=== PATIENT | male | born 1970 | race African-American/Black ===

== ENCOUNTER 2021-02-05 10:02 | Inpatient (IN) | payer OTHER ==
[~2021-02-05] VITALS: Ht 167.6 cm; Wt 72.9 kg
[2021-02-05] MEDS ORDERED: SODIUM CHLORIDE 0.9% 1,000 ML IV ONE ×2 (10:15→13:00)
[2021-02-05] MEDS ORDERED: FAMOTIDINE (10MG/ML) 2ML VL IV ONE (10:15)
[2021-02-05] MEDS ORDERED: IOHEXOL 300 MG/ML 100ML BOTTLE IJ ONE (10:23)
[2021-02-05 10:45] LABS: Basophils # (auto) 0.1 10 ^3/uL (0-0.2); Basophils % (auto) 0.6 % (0.0-2.0); Eosinophils # (auto) 0 10 ^3/uL (0-0.8); Eosinophils % (auto) 0.4 % (0.0-7.0); Hematocrit 32.2 % (41.0-53.0); Hemoglobin 10.7 g/dL (13.5-17.5); Lymphocytes # (auto) 2.4 10 ^3/uL (0.4-5.4); Lymphocytes % (auto) 23.7 % (10.0-50.0); Mean Corpuscular Hemoglobin 30.9 pg (28.0-32.0); Mean Corpuscular Hgb Conc. 33.2 g/dL (32.0-36.0); Mean Corpuscular Volume 93.1 fL (80.0-100.0); Monocytes # (auto) 0.7 10 ^3/uL (0-1.3); Monocytes % (auto) 6.3 % (0.0-12.0); Neutrophils # (auto) 7.1 10 ^3/uL (1.6-8.6); Red Blood Cells 3.46 10^6/uL (4.5-5.90); Red Cell Distribution Width 13.3 % (11.8-14.3); White Blood Cell 10.3 10^3/uL (4.4-10.8)
[2021-02-05 11:11] LABS: Alanine Aminotransferase 17 U/L (16-61); Albumin 3.6 g/dL (3.4-5.0); Anion Gap 6 (5-15); Blood Urea Nitrogen 43 mg/dL (7-18); Calcium 8.9 mg/dL (8.5-10.1); Carbon Dioxide 26 mmol/L (21-32); Chloride 106 mmol/L (98-107); Glucose 103 mg/dL (74-106); INR 1.03 (0.9-1.15); Partial Thromboplastin Time 24.5 sec (23.0-31.2); Potassium 3.7 mmol/L (3.5-5.1); Sodium 138 mmol/L (136-145)
[2021-02-05 11:16] LABS: Alkaline Phosphatase 64 U/L (45-117); Aspartate Aminotransferase 19 U/L (15-37); BUN/Creatinine Ratio 48.9; Bilirubin, Total 0.5 mg/dL (0.2-1.0); GFR African American 117 mL/min; GFR Non-African American 97 mL/min; Total Protein 7.9 g/dL (6.4-8.2)
[2021-02-05] MEDS ORDERED: NITROGLYCERIN 0.4 MG SL TAB SL PRN (13:00)
[2021-02-05] MEDS ORDERED: MORPHINE SULFATE INJECTION 2 MG/ML SYRG IV PRN ×2 (13:00)
[2021-02-05] MEDS ORDERED: ONDANSETRON HCL 4 MG/2 ML VIAL IV PRN (13:00)
[2021-02-05] MEDS: PANTOPRAZOLE 40mg/50ML NS AE 50 ML IV SCH ×3 (14:09→22:00)
[2021-02-05] MEDS: SUCRALFATE 1 GM/10 ML ORAL SUSP PO SCH ×2 (18:39→21:58)
[2021-02-05 19:19] LABS: Urine Bacteria NONE SEEN /hpf (None Seen); Urine Blood Negative /uL (Negative); Urine WBC 3 /hpf (0 - 3)
[2021-02-05 19:25] LABS: Urine Specific Gravity > 1.050 (1.001-1.035)
[2021-02-06] MEDS: PANTOPRAZOLE 40mg/50ML NS AE 50 ML IV SCH ×2 (02:20→10:39)
[2021-02-06 03:47] VITALS: BP 102/69
[2021-02-06 04:52] VITALS: BP 101/55
[2021-02-06] MEDS: SUCRALFATE 1 GM/10 ML ORAL SUSP PO SCH ×4 (06:29→22:20)
[2021-02-06 07:49] LABS: Basophils # (auto) 0.1 10 ^3/uL (0-0.2); Basophils % (auto) 1.1 % (0.0-2.0); Eosinophils # (auto) 0.1 10 ^3/uL (0-0.8); Eosinophils % (auto) 1.1 % (0.0-7.0); Hematocrit 26.2 % (41.0-53.0); Hemoglobin 8.9 g/dL (13.5-17.5); Lymphocytes # (auto) 1.8 10 ^3/uL (0.4-5.4); Lymphocytes % (auto) 34.7 % (10.0-50.0); Mean Corpuscular Hemoglobin 31.5 pg (28.0-32.0); Mean Corpuscular Hgb Conc. 33.7 g/dL (32.0-36.0); Mean Corpuscular Volume 93.4 fL (80.0-100.0); Monocytes # (auto) 0.4 10 ^3/uL (0-1.3); Monocytes % (auto) 8.2 % (0.0-12.0); Neutrophils # (auto) 2.8 10 ^3/uL (1.6-8.6); Neutrophils % (auto) 54.9 % (37.0-80.0); Nucleated Red Blood Cells % 0.1 %; Red Blood Cells 2.81 10^6/uL (4.5-5.90); Red Cell Distribution Width 13.3 % (11.8-14.3); White Blood Cell 5.2 10^3/uL (4.4-10.8)
[2021-02-06 07:57] LABS: Albumin 3.1 g/dL (3.4-5.0); Calcium 8.2 mg/dL (8.5-10.1); Potassium 3.6 mmol/L (3.5-5.1)
[2021-02-06 08:00] VITALS: BP 100/70
[2021-02-06 08:00] LABS: BUN/Creatinine Ratio 28.6; Bilirubin, Total 0.4 mg/dL (0.2-1.0); Total Protein 6.6 g/dL (6.4-8.2)
[2021-02-06 12:00] VITALS: BP 110/81
[2021-02-06] MEDS ORDERED: LIDOCAINE VISCOUS 2% 15ML UD ONE (12:19)
[2021-02-06] MEDS: fentaNYL CITRATE 100 MCG/2 ML VL ONE ×2 (12:35→12:38)
[2021-02-06] MEDS: MIDAZOLAM HCL 5 MG/ML-1ML VIAL ONE ×3 (12:35→12:42)
[2021-02-06] MEDS: diphenhdrAMINE HCL 50 MG/1 ML VL ONE ×2 (12:35→12:38)
[2021-02-06 14:14] LABS: Hematocrit 25.5 % (41.0-53.0); Hemoglobin 8.5 g/dL (13.5-17.5)
[2021-02-06 16:00] VITALS: BP 109/65
[2021-02-06 22:13] LABS: Hematocrit 22.6 % (41.0-53.0); Hemoglobin 7.8 g/dL (13.5-17.5)
[2021-02-06] MEDS: PANTOPRAZOLE 40 MG TAB PO SCH (22:20)
[2021-02-07 05:00] VITALS: BP 112/69
[2021-02-07 05:41] LABS: Basophils # (auto) 0 10 ^3/uL (0-0.2); Eosinophils # (auto) 0.2 10 ^3/uL (0-0.8); Monocytes # (auto) 0.4 10 ^3/uL (0-1.3); Neutrophils # (auto) 2.9 10 ^3/uL (1.6-8.6)
[2021-02-07 05:44] LABS: Basophils % (auto) 0.9 % (0.0-2.0); Eosinophils % (auto) 3.1 % (0.0-7.0); Hematocrit 23.6 % (41.0-53.0); Lymphocytes # (auto) 1.8 10 ^3/uL (0.4-5.4); Lymphocytes % (auto) 33.6 % (10.0-50.0); Mean Corpuscular Hemoglobin 31.9 pg (28.0-32.0); Mean Corpuscular Hgb Conc. 33.9 g/dL (32.0-36.0); Mean Corpuscular Volume 94.2 fL (80.0-100.0); Monocytes % (auto) 7.2 % (0.0-12.0); Neutrophils % (auto) 55.2 % (37.0-80.0); Nucleated Red Blood Cells % 0.1 %; White Blood Cell 5.3 10^3/uL (4.4-10.8)
[2021-02-07] MEDS: SUCRALFATE 1 GM/10 ML ORAL SUSP PO SCH (05:57)
[2021-02-07 09:30] VITALS: BP 114/63
[2021-02-07] MEDS: PANTOPRAZOLE 40 MG TAB PO SCH (09:49)
[2021-02-07] MEDS ORDERED: PANT40T PO (10:28)
[2021-02-07] MEDS ORDERED: SUCR1TAB22 OR (10:29)
[2021-02-07] MEDS ORDERED: FERR-7 PO (10:30)
[2021-02-07] MEDS ORDERED: SODIUM FERR GLUC 62.5MG/5ML 125 MG in SODIUM CHL 0.9% 100 ML IV ONE (10:30)
[2021-02-07 13:00] VITALS: BP 117/78
[2021-02-07 13:50] VITALS: BP 117/78
== END 2021-02-07 15:30 | disposition home or self-care (01) | DRG 241 ==
LOC: ER 10:02 → TELE 10:03 → TELE-WESTW 02-06 02:40
PROVIDERS: ADMIT Nurse Practitioner Acute Care; ATTEND Internal Medicine Nephrology
PROC: 0DB78ZX Excision of Stomach, Pylorus, Via Natural or Artificial Opening Endoscopic, Diagnostic (ICD-10-PCS; 2021-02-06)
PROC: 0DB68ZX Excision of Stomach, Via Natural or Artificial Opening Endoscopic, Diagnostic (ICD-10-PCS; principal; 2021-02-06 12:38)
DX: K29.61 Other gastritis with bleeding (principal); D62 Acute posthemorrhagic anemia; F12.10 Cannabis abuse, uncomplicated; Z20.822 Contact with and (suspected) exposure to COVID-19; Z87.11 Personal history of peptic ulcer disease; K44.9 Diaphragmatic hernia without obstruction or gangrene; Z79.1 Long term (current) use of non-steroidal anti-inflammatories (NSAID)
CPT/HCPCS: 36415; 43239; 71045; 74177; 80053; 81001; 84484; 85014; 85018; 85025; 85610; 85730; 86850; 86900; 86901; 87426; 93005; 96361; 96365; 96366; 96375; G0378; J2250; J3490